=== PATIENT | female | born 1950 | race Two or more races ===

== ENCOUNTER 2018-02-26 10:41 | Outpatient (CLI) | payer BC | END 2018-02-26 23:59 | disposition home or self-care (01) | LOC: MRI 10:41 | PROVIDERS: ATTEND Legal Medicine | DX: I67.82 Cerebral ischemia (principal) | CPT/HCPCS: 70551-TC; 73221-TC ==

== ENCOUNTER 2018-06-23 05:26 | Day surgery (SDC) | payer BC, MEDICARE ==
[2018-06-23] MEDS ORDERED: methylPREDNISolone ACETATE 80 MG/ML VIAL ONE (06:36)
[2018-06-23] MEDS ORDERED: LIDOCAINE HCL/PF 1% 30 ML SDV ONE (06:36)
[2018-06-23] MEDS ORDERED: EPINEPHRINE (1:1000) MDV 30 MG/30ML VIAL ONE (06:36)
[2018-06-23] MEDS ORDERED: ANESTHESIA TRAY IN PYXIS 1 EA TRAY MC ONE (06:36)
[2018-06-23] MEDS ORDERED: ROCURONIUM BROMIDE 50 MG/5 ML ONE (06:55)
[2018-06-23] MEDS ORDERED: HYDROMORPHONE INJ 2 MG/ML DISP.SYRIN ONE (06:55)
[2018-06-23] MEDS ORDERED: BUPIVACAINE 0.5 % PF 150 MG/30 ML VIAL ONE (06:55)
[2018-06-23] MEDS ORDERED: HYDROMORPHONE 1 MG/1 ML DISP.SYRIN ONE (08:01)
[2018-06-23] MEDS ORDERED: LABETALOL HCL IV 100MG VIAL ONE (08:02)
[2018-06-23] MEDS ORDERED: ONDANSETRON HCL/PF 4 MG/2 ML VIAL IVP ONE ×2 (14:30→15:00)
--- NOTE | 2018-06-23 16:00 | NUR ---
DISCHARGE NOTE PATIENT A/OX4, NAUSEA AND DIZZINESS RESOLVED. NO RESPIRATORY DISTRESS NOTED. POST OP DISCHARGE INSTRUCTIONS GIVEN, PATIENT VERBALIZED UNDERSTANDING. SKIN ASSESSMENT COMPLETED, PIV REMOVED APPLIED GAUZE AND TAPE, BELONGINGS RECONCILED AND COMPLETE. NEEDS ATTENDED AND MET, SON AT BEDSIDE, PATIENT LEFT THE FACILITY IN NO DISTRESS, STAFF ACCOMPANIED PATIENT VIA WHEELCHAIR.
== END 2018-06-23 16:00 | disposition home or self-care (01) ==
LOC: DS 05:26
PROVIDERS: ATTEND Specialist
DX: M19.012 Primary osteoarthritis, left shoulder (principal); M75.42 Impingement syndrome of left shoulder; M75.112 Incomplete rotator cuff tear or rupture of left shoulder, not specified as traumatic; M65.812 Other synovitis and tenosynovitis, left shoulder; K21.9 Gastro-esophageal reflux disease without esophagitis; E55.9 Vitamin D deficiency, unspecified; G89.18 Other acute postprocedural pain; Z88.5 Allergy status to narcotic agent; Z79.899 Other long term (current) drug therapy
CPT/HCPCS: 29824; 29826; 64415; 71045; 87081; 88304; 88311; J0171; J0690; J1040; J1100; J1170 ×2; J1885; J2405 ×2; J2704; J2710; J3490 ×5; A4217; A4565; Z7610